=== PATIENT | male | born 1985 | race Caucasian/White ===

== ENCOUNTER 2020-08-14 03:36 | Inpatient (IN) ==
[2020-08-14 05:06] LABS: ABS Eosinophils 0.4 10^3/ul (0-0.6); ABS Lymphocytes 3.4 10^3/ul (1.0-4.8); ABS Monocytes 1.4 10^3/ul (0-0.8); ABS Neutrophils 13.7 10^3/ul (1.5-7.7); Eosinophil % 1.9 %; Hematocrit 40 % (42-52); Lymphocyte % 18.2 %; Mean Corpuscular HGB Conc 35 g/dL (31-36); Mean Corpuscular Hemoglobin 32 pg (27-31); Mean Corpuscular Volume 93 fL (80-94); Mean Platelet Volume 7.4 fL (7.4-10.4); Platelet Count 332 10^3/uL (150-450); Red Blood Count 4.33 10^6 /uL (4.18-5.48); Red Cell Distribution Width 13 % (10-15)
[2020-08-14 05:17] LABS: ALT 30 U/L (7-52); AST 26 U/L (13-39); Albumin 4.4 g/dL (3.2-5.2); Albumin/Globulin Ratio 1.7 (1-3); Alkaline Phosphatase 59 U/L (34-104); Anion Gap 7 mmol/L (2-11); Blood Urea Nitrogen 16 mg/dL (6-24); CO2 Carbon Dioxide 25 mmol/L (22-32); Calcium 9.3 mg/dL (8.6-10.3); Chloride 103 mmol/L (101-111); EGFR African American 128.3 (>60); EGFR Non-African American 106.1 (>60); Globulin 2.6 g/dL (2-4); Glucose 91 mg/dL (70-100); Potassium 3.8 mmol/L (3.5-5.0); Sodium 135 mmol/L (135-145)
[2020-08-14 05:21] LABS: Alcohol, S < 10 mg/dL (<10); Salicylate < 2.50 mg/dL (<30)
[2020-08-14 05:29] LABS: Acetaminophen < 15 mcg/mL
[2020-08-14] MEDS ORDERED: Al Hydrox/Mg Hydrox/Simet LIQ 30 ML UDC PO PRN (08:30)
[2020-08-14 08:37] LABS: Urine Benzodiazepine Screen None Detected (None Detect); Urine Cannabinoids Screen None Detected (None Detect); Urine Opiates Screen None Detected (None Detect)
[2020-08-14] MEDS: Vitamin THERAPEUTIC TAB PO SCH (10:21)
[2020-08-14 11:54] LABS: Free T4 0.73 ng/dL (0.61-1.12)
[2020-08-15 07:48] LABS: ABS Basophils 0.1 10^3/ul (0-0.2); ABS Eosinophils 0.3 10^3/ul (0-0.6); ABS Lymphocytes 2.7 10^3/ul (1.0-4.8); ABS Monocytes 0.8 10^3/ul (0-0.8); ABS Neutrophils 9.2 10^3/ul (1.5-7.7); Eosinophil % 2.2 %; Hematocrit 42 % (42-52); Hemoglobin 14.3 g/dL (14.0-18.0); Lymphocyte % 20.6 %; Mean Corpuscular HGB Conc 34 g/dL (31-36); Mean Corpuscular Hemoglobin 32 pg (27-31); Mean Corpuscular Volume 94 fL (80-94); Mean Platelet Volume 7.3 fL (7.4-10.4); Platelet Count 318 10^3/uL (150-450); Red Blood Count 4.44 10^6 /uL (4.18-5.48); Red Cell Distribution Width 13 % (10-15); White Blood Count 13.1 10^3/uL (3.5-10.8)
[2020-08-15 08:03] LABS: HDL Cholesterol 40.9 mg/dL
[2020-08-15] MEDS: Vitamin THERAPEUTIC TAB PO SCH (08:31)
[2020-08-16] MEDS: Vitamin THERAPEUTIC TAB PO SCH (08:21)
[2020-08-17] MEDS: Vitamin THERAPEUTIC TAB PO SCH (07:32)
[2020-08-18] MEDS: Vitamin THERAPEUTIC TAB PO SCH (07:46)
[2020-08-19] MEDS: Vitamin THERAPEUTIC TAB PO SCH (08:16)
[2020-08-20] MEDS: Vitamin THERAPEUTIC TAB PO SCH (08:33)
[2020-08-20 08:40] VITALS: BP 118/78
== END 2020-08-20 12:25 | disposition home or self-care (01) | DRG 753 ==
LOC: ED 03:36 → BSU 08:31
PROVIDERS: ADMIT Psychiatry & Neurology Psychiatry; ATTEND Psychiatry & Neurology Psychiatry